=== PATIENT | male | born 1990 | race Caucasian/White ===

== ENCOUNTER 2016-06-28 10:55 | Emergency (ER) | payer OTHER ==
[~2016-06-28] VITALS: Ht 177.8 cm; Wt 70.3 kg
[2016-06-28 11:04] VITALS: BP 114/73
--- NOTE | 2016-06-28 11:17 | ED GENERAL ADULT ---
History of Present Illness General Chief Complaint: Neck/Upper Back Pain/Injury Stated Complaint: NECK PAIN Source: patient Exam Limitations: no limitations Vital Signs & Intake/Output Vital Signs & Intake/Output Vital Signs Date Time Temp Pulse Resp B/P Pulse O2 O2 Flow FiO2 Ox Delivery Rate 06/28 1104 96.1 67 16 114/73 98 Room Air Allergies Coded Allergies: Penicillins (RASH 06/28/16) Reconcile Medications Cyclobenzaprine HCl 10 MG TABLET 1 TAB PO QPM cervical strain Methylprednisolone. (Medrol) 4 MG TAB.DS.PK 1 DP PO AD cervical strain 6 on day 1 then reduce by one tablet daily until gone Triage Note: PT STATES FOR A FEW WEEKS HE HAS HAD PAIN IN HIS LEFT DELTOID. PT STATES THIS AM HE COULDN'T GET OOB AND NOW HE IS HAVING PAIN SHOOTING DOWN HIS LEFT ARM. PT STATES HE IS IN THE [employer] AND HAS BEEN WORKING OUT. Triage Nurses Notes Reviewed? yes Onset: Gradual Duration: week(s): (2) Timing: no prior history Injury Environment: home Severity: moderate Severity Numbers: 7 Modifying Factors: Improves With: immobilization. Worsens With: movement. HPI: Patient is a 26-year-old male presenting to the emergency department a chief complaint of pain to the left side of his neck that's radiating into the left shoulder does been going on constantly for the past 2 weeks. Pain is worse with movement. Pain achy throbbing. Has been using ibuprofen intermittently which seems to help but then the pain returns. He is reporting intermittent tingling now in the left shoulder. He reports that it started after shoveling after a snowstorm. He continues to workout aggressively as heat in the [employer]. Denies any chest pain palpitations nausea vomiting fevers or chills or shortness of breath. Denies any falls or direct trauma to the shoulder. Denies any other injuries or pain. (MARJ BALDWIN) Past History Travel History Traveled to [place] past 21 day No Medical History Any Pertinent Medical History? see below for history Surgical History Surgical History: non-contributory Psychosocial History What is your primary language Bhutanese Tobacco Use: Never used ETOH Use: occasional use Illicit Drug Use: denies illicit drug use Family History Hx Contributory? No (MARJ BALDWIN) Review of Systems Review of Systems Constitutional: Reports: no symptoms. Comments Review of systems: See HPI, All other systems negative. Constitutional, no chills fever or weight loss HEENT: No visual changes no sore throat no congestion Cardiovascular: No chest pain ,palpitation Skin, no jaundice no rashes Respiratory: No dyspnea cough sputum or hemoptysis GI: No nausea no vomiting : No dysuria No hematuria Muscle skeletal: no back pain Neurologic: No numbness no confusion Psych: No stress anxiety or depression,. Heme/endocrine: No bruising no bleeding no polyuria or polydipsia Immunology: No splenectomy or history of AIDS (MARJ BALDWIN) Physical Exam Physical Exam General Appearance: well developed/nourished, no apparent distress, alert, awake , comfortable Comments: Well-developed well-nourished person in no acute distress HEENT: Pupils equally round and reactive to light and accommodation. Nose is atraumatic. Pharynx normal. No swelling or edema. Neck: Supple, no lymphadenopathy, full rom of neck, tender to palpation over the left trap and left cervical paraspinal area. Back: Nontender, no CVA tenderness. Full range of motion Cardiovascular: Regular rate and rhythms no murmurs rubs or gallops, normal JVP Respiratory: Chest nontender. No respiratory distress.breath sounds clear to auscultation bilaterally Extremity: No edema, full range of motion of left upper extremity without difficulty or pain. No pain to palpation over the left bicep tendon. Mild tenderness to palpation along the left trapezius muscle. No obvious muscle spasm present currently. Pulses are 2+ bilaterally. Full range of motion of left elbow, left wrist and hand. Wool Carder strength is equal and symmetric bilaterally. Neuro: Alert oriented x3, motor sensory normal in upper extremities, cn 2-12 intact. Skin: No appreciable rash on exposed skin, skin is warm and dry. Psych: Mood and affect is normal, memory and judgment is normal. Core Measures ACS in differential dx? No CVA/TIA Diagnosis: No Severe Sepsis Present: No Septic Shock Present: No (MARJ BALDWIN) Progress Differential Diagnoses I considered the following diagnoses in my evaluation of the patient: Cervical strain, herniated disc, contusion, radicular pain, nerve impingement Plan of Care: 06/28/2016 11:47:46 AM declines pain medication on arrival. Patient is neurovascularly intact with full range of motion of the left shoulder without difficulty. Reproducible pain to palpation along the left cervical paraspinal muscles and the left trapezius muscles. Likely muscle strain from excessive overuse. Patient will be treated symptomatically. Distal pulses intact. Patient will follow up with orthopedic if symptoms persist. Started on a Medrol Dosepak and Flexeril. Initial ED EKG: none (MARJ BALDWIN) Departure Departure Time of Disposition: 1134 Disposition: HOME OR SELF CARE Condition: Stable Clinical Impression Primary Impression: Cervical strain Qualifiers: Encounter type: initial encounter Qualified Code: S16.1XXA - Strain of muscle, fascia and tendon at neck level, initial encounter Secondary Impressions: Radicular pain Referrals: BEN LOWE,PARKER Thomas (PCP/Family) WENDY LOWE,MARIO Alcantara Additional Instructions: follow up with orthopedic if symptoms worsen. take medrol dose pack and flexeril as prescribed. apply warm compresses. return for worsening symptoms or concerns. Departure Forms: Customer Survey General Discharge Information Prescriptions: Current Visit Scripts Cyclobenzaprine HCl 1 TAB PO QPM #15 TAB Methylprednisolone. (Medrol) 1 DP PO AD #1 DP 6 on day 1 then reduce by one tablet daily until gone (MARJ BALDWIN) PA/INTERACTIVE DEVELOPER Co-Sign Statement Statement: ED Attending supervision documentation- [] I saw and evaluated the patient. I have also reviewed all the pertinent lab results and diagnostic results. I agree with the findings and the plan of care as documented in the PA's/INTERACTIVE DEVELOPER's documentation. x I have reviewed the ED Record and agree with the PA's/INTERACTIVE DEVELOPER's documentation. [] Additions or exceptions (if any) to the PAs/INTERACTIVE DEVELOPER's note and plan are summarized below: [] (WALE LOWE,SOULEYMANE) Critical Care Note Critical Care Note Critical Care Time: non-applicable (MARJ BALDWIN)
[2016-06-28] MEDS ORDERED: MEDROL4 M2 PO (11:38)
[2016-06-28] MEDS ORDERED: CYCLOBENZAPRINE10 M1 PO (11:38)
== END 2016-06-28 11:47 ==
LOC: ERH 10:55
DX: S16.1XXA Strain of muscle, fascia and tendon at neck level, initial encounter (principal); M54.10 Radiculopathy, site unspecified; X50.0XXA Overexertion from strenuous movement or load, initial encounter; Y93.H1 Activity, digging, shoveling and raking; Y92.9 Unspecified place or not applicable